=== PATIENT | female | born 1980 | race Hispanic/Latino ===

== ENCOUNTER 2025-01-14 12:30 | Emergency (ER) | payer SELFPAY ==
[2025-01-14] MEDS ORDERED: Lorazepam 2 MG/ML VIAL ONE (15:13)
[2025-01-14] MEDS ORDERED: diphenhydrAMINE 50 MG/ML VIAL ONE (15:14)
[2025-01-14] MEDS ORDERED: Prochlorperazine 10 MG/2 ML VIAL ONE (15:14)
[2025-01-14] MEDS ORDERED: Benzonatate 100 MG CAP ONE (15:34)
== END 2025-01-14 16:52 | disposition home or self-care (01) ==
LOC: CSHERS 12:30
DX: U07.1 COVID-19 (principal); I11.0 Hypertensive heart disease with heart failure; I50.9 Heart failure, unspecified; E11.9 Type 2 diabetes mellitus without complications
CPT/HCPCS: 36416; 87081; 87428; 87430; 96374; 96375; J0780; J1200; J2060